=== PATIENT | female | born 1950 | race Two or more races ===

== ENCOUNTER 2024-10-06 13:05 | Emergency (ER) | payer OTHER ==
[~2024-10-06] VITALS: Ht 154.9 cm; Wt 63.0 kg
[~2024-10-06 13:05] MED LIST: BACTRIM DS TABL1 TAB PO; CLARINEX5 MG/TAB PO; CYMBALTA60 MG; [UNRECOGNIZED DRUG - OTHER] PO
[2024-10-06] MEDS ORDERED: CLONAZEPAM0.5 MG PO (13:28)
[2024-10-06] MEDS ORDERED: LEXAPRO20 MG PO (13:28)
[2024-10-06] MEDS ORDERED: CHILDREN'S ASPI81 MG PO (13:29)
[2024-10-06] MEDS ORDERED: LIPITOR20 MG PO (13:29)
[2024-10-06] MEDS ORDERED: PANTOPRAZOLE SO40 M2 PO (13:30)
[2024-10-06] MEDS ORDERED: LEVOFLOXAC750 MG/150 IV (13:30)
[2024-10-06] MEDS ORDERED: PEPCID AC20 MG PO (13:30)
[2024-10-06] MEDS ORDERED: ONDANSETRON HCL 2 MG/ML VIAL IV ONE (15:15)
[2024-10-06] MEDS ORDERED: 0.9 % SODIUM CHLORIDE 1,000 ML IV ONE (15:15)
[2024-10-06] MEDS ORDERED: FAMOtidine 10 MG/ML (4ML VIAL) IV ONE (15:15)
[2024-10-06 16:10] LABS: HEMATOCRIT 47.4 % (36.0-45.00); HEMOGLOBIN 15.8 g/dL (12.0-15.00); MEAN CELL VOLUME 89.8 fL (80.00-100.00); MEAN CORPUSCULAR HEMOGLOBIN 29.9 pg (27.00-32.0); MEAN CORPUSCULAR HGB CONC 33.3 g/dl (32.0-36.0); PLATELET COUNT 258 K/uL (150-450); RED BLOOD COUNT 5.27 M/uL (4.00-6.00); RED CELL DISTRIBUTION WIDTH 13.7 % (11.5-14.5)
[2024-10-06 16:26] LABS: INR 1.07; PARTIAL THROMBOPLASTIN TIME 26.7 SECONDS (22.0-34.0); PROTHROMBIN TIME 11.6 SECONDS (9.0-11.5)
[2024-10-06 16:28] LABS: PH,URINE 5.5 (5.0-8.0); URINE APPEARANCE Clear; URINE BILIRRUBIN Negative (NEGATIVE); URINE BLOOD Negative; URINE COLOR Yellow; URINE GLUCOSE Negative (NEGATIVE); URINE KETONE Trace (NEGATIVE); URINE LEUKOCYTE Negative; URINE NITRATE Negative; URINE PROTEIN Trace (NEGATIVE); URINE UROBILINOGEN 0.2 E.U./dl
[2024-10-06 16:32] LABS: URINE BACTERIA 4.8 uL (0.0-1933); URINE EPITHELIAL CELLS 17.5 uL (0.0-38.8); URINE RBC 6.1 uL (0.0-20.8); URINE WBC 6.6 uL (0.0-23.2)
[2024-10-06 16:33] LABS: ALBUMIN 4.5 gm/dL (3.4-5.0); BILIRUBIN TOTAL 2.3 mg/dL (0.3-1.2); CALCIUM 9.8 mg/dL (8.5-10.1); CREATININE SERUM 1.31 mg/dL (0.55-1.02); GFR 39.69; GLOBULINA 3.4 G/DL (2.4-3.5); POTASSIUM 3.58 mEq/L (3.5-5.1); TOTAL PROTEIN 7.9 gm/dL (6.4-8.2)
[2024-10-06] MEDS ORDERED: KETOROLAC TROMETHAMINE 60 MG VIAL IM STA (16:37)
[2024-10-06] MEDS ORDERED: TRIAMCINOLONE ACETONIDE 40 MG/ML VIAL IM STA (16:37)
[2024-10-06 16:48] LABS: URINE CAST 0.29 uL (0.0-1.40)
[2024-10-06] MEDS ORDERED: METHYLPREDNISOLONE SOD SUCC 125 MG VIAL IV ONE (17:30)
[2024-10-06] MEDS ORDERED: DIPHENHYDRAMINE HCL 50 MG/ML VIAL 1ML IV ONE (17:30)
[2024-10-06] MEDS ORDERED: FAMOTIDINE/PF 20 MG/2 ML VIAL IV PUSH ONE (17:30)
== END 2024-10-06 20:34 | disposition home or self-care (01) ==
LOC: ER 13:08
PROVIDERS: General Practice
DX: K52.9 Noninfective gastroenteritis and colitis, unspecified (principal); R10.9 Unspecified abdominal pain; Z88.1 Allergy status to other antibiotic agents
CPT/HCPCS: 36415; 71045; 74177; 93005; Q9965

== ENCOUNTER 2025-02-09 10:08 | Emergency (ER) | payer OTHER ==
[~2025-02-09] VITALS: Ht 160 cm; Wt 62.6 kg
[~2025-02-09 10:08] MED LIST changes: +CHILDREN'S ASPI81 MG PO; +CLONAZEPAM0.5 MG PO; +LEVOFLOXAC750 MG/150 IV; +LEXAPRO20 MG PO; +LIPITOR20 MG PO; +PANTOPRAZOLE SO40 M2 PO; +PEPCID AC20 MG PO
[2025-02-09] MEDS ORDERED: 0.9 % SODIUM CHLORIDE 500 ML IV STA (14:25)
[2025-02-09] MEDS ORDERED: ONDANSETRON HCL 2 MG/ML VIAL IV STA (14:30)
[2025-02-09] MEDS ORDERED: FAMOTIDINE/PF 20 MG/2 ML VIAL IV STA (14:31)
[2025-02-09 16:36] LABS: BASO % 0.3 % (0.1-1.2); EOS # 0.03 (0.04-0.54); EOS % 0.4 % (0.7-7.0); LYMPH # 2.42 (1.18-3.74); LYMPH % 34.8 % (19.3-53.1); MEAN PLATELET VOLUME 9.90 fl (9.4-12.4); MONO # 0.80 (0.24-0.82); MONO % 11.5 % (4.7-12.5); NEUT # 3.67 (1.56-6.13); NEUT % 52.9 % (34.0-71.1); RED CELL DISTRIBUTION WIDTH 12.7 % (11.6-14.4)
[2025-02-09 16:42] LABS: URINE APPEARANCE Clear; URINE BILIRRUBIN Small (NEGATIVE); URINE BLOOD Negative; URINE COLOR Dark Yellow; URINE GLUCOSE Negative (NEGATIVE); URINE KETONE 15 (NEGATIVE); URINE LEUKOCYTE Trace; URINE NITRATE Negative; URINE PROTEIN Trace (NEGATIVE); URINE UROBILINOGEN 1.0 E.U./dl
[2025-02-09 16:46] LABS: URINE BACTERIA 5.9 uL (0.0-1933); URINE EPITHELIAL CELLS 18.4 uL (0.0-38.8); URINE RBC 10.7 uL (0.0-20.8); URINE WBC 4.9 uL (0.0-23.2)
[2025-02-09 16:48] LABS: URINE CAST 0.58 uL (0.0-1.40)
[2025-02-09 17:02] LABS: ALT/SGPT 27.0 U/L (12-78); AST/SGOT 25.0 U/L (15-37); BILIRUBIN TOTAL 1.81 mg/dL (0.3-1.2); BUN CREA RATIO 12.0 (7.0-25.0); CREATININE SERUM 1.13 mg/dL (0.55-1.02); GFR 47.07; GLOBULINA 3.4 G/DL (2.4-3.5); GLUCOSE FASTING 96.0 mg/dL (65-100); OSMOLALITY SERUM 283.0 MOSM/KG (275-295)
[2025-02-09 17:38] LABS: COVID-19 AG POSITIVE (NEGATIVE)
[2025-02-09] MEDS ORDERED: ONDANSETRON ODT4 MG PO (18:25)
[2025-02-09] MEDS ORDERED: GILTUSS HONEY118 ML PO (18:25)
[2025-02-09] MEDS ORDERED: PAXLOVID 300/11 EACH PO (18:25)
== END 2025-02-09 18:37 | disposition home or self-care (01) ==
LOC: ER 10:08
PROVIDERS: Preventive Medicine Public Health & General Preventive Medicine
DX: U07.1 COVID-19 (principal); B34.9 Viral infection, unspecified; Z88.0 Allergy status to penicillin